=== PATIENT | female | born 1940 | race Caucasian/White ===

== ENCOUNTER 2016-08-20 06:20 | Inpatient (IN) | payer MEDICARE, OTHER ==
[2016-08-14 11:06] LABS: HEMATOCRIT 38.3 % (36.0-48.0)
[2016-08-14 11:20] LABS: A/G RATIO 1.4 (0.7-1.9); ALBUMIN 3.9 G/DL (3.5-5.0); ALKALINE PHOSPHATASE 86 U/L (45-117); BUN (BLOOD UREA NITROGEN) 14 MG/DL (6-23); CALCIUM, SERUM 9.2 MG/DL (8.5-10.4); CHLORIDE, SERUM 110 MMOL/L (96-112); CO2 (CARBON DIOXIDE) 27 MMOL/L (24-34); CREATININE 0.75 MG/DL (0.55-1.02); GFR AFRICAN AMERICAN 90 ML/MIN (>=60); GFR NON AFRICAN AMERICAN 77 ML/MIN (>=60); GLOBULIN 2.8 G/DL (2.5-4.1); GLUCOSE, SERUM 94 MG/DL (60-99); POTASSIUM, SERUM 4.4 MMOL/L (3.5-5.3); SGOT(AST) 19 U/L (5-40); SGPT(ALT) 21 U/L (5-65); SODIUM, SERUM 144 MMOL/L (135-148); TOTAL BILIRUBIN 0.5 MG/DL (0-1.2); TOTAL PROTEIN 6.7 G/DL (6.0-8.5)
--- NOTE | ~2016-08-20 | OP ---
Record Of Operation [facility] [address] [place]. [address] NAME: STEPHANI FORTE : 40 STATUS : ADM IN PAT#: [id number] AGE: 76 ADM/REG DATE : 08/20/16 MR#: [id number] REPORT SERV DATE: 08/20/16 DICTATED BY: TORSTEN DANIELS DATE: 08/20/16 REPORT STATUS : Draft TRANSCRIBED BY: MODL DATE: 08/20/16 DATE OF PROCEDURE: 08/20/2016 PREOPERATIVE DIAGNOSES: 1. Type 3 paraesophageal hiatal hernia. 2. Gastroesophageal reflux disease. POSTOPERATIVE DIAGNOSES: 1. Type 3 paraesophageal hiatal hernia. 2. Gastroesophageal reflux disease. PROCEDURES: 1. Laparoscopic reduction and mesh patch repair of type 3 diaphragmatic hiatal hernia. 2. Laparoscopic Gissel fundoplication. DESCRIPTION OF OPERATIVE PROCEDURE: The patient was brought to the operating suite, placed in the supine position, underwent satisfactory general endotracheal anesthesia without incident. The lower extremities were elevated in the padded Rodo stirrups and the skin of the abdomen was scrubbed, prepped, and draped in usual sterile fashion. Initially, a left subcostal incision was performed and a disposable Veress insufflation was inserted through the muscular aponeurotic fascia into the peritoneal cavity. The intraperitoneal tip location was ascertained using the saline hanging drop method following which CO2 was insufflated for pressures of 15 mmHg throughout the case. After adequate insufflation pressure achieved, the Veress needle was removed, and a Optiview 11 mm trocar was inserted through this subcostal site into the peritoneal cavity following which a rigid 30-degree angle viewing 10 mm laparoscope was utilized. Visualization of the intraabdominal parietes revealed no evidence of injury from initial insufflation or puncture. Four additional trocars were placed under direct visualization, all 5 mm in size except at the umbilicus where a 10-11 mm trocar was placed and a camera switched to this site for the remainder of the case. Through the right subcostal 5 mm incision, a Hayley- Flex liver retractor was passed, actuated, and used to elevate the left lobe of the liver and visualized the diaphragmatic hiatal hernia. The stomach was entirely intrathoracic/in the mediastinum. No other intraabdominal parietes were through the hiatus. Using the Harmonic Scalpel dissection supplemented with blunt dissection, the gastrohepatic ligament was divided and the hernia sac was dissected free from the mediastinum with blunt and Harmonic dissection. Retroesophageal dissection was performed starting at the right carrol and continued in the avascular plane behind the GE junction towards the left carrol. Gastric fundus was mobilized with the short gastric vessels again with the Harmonic Scalpel. The left carrol was retracted laterally and further dissection of the hernia sac was performed to reduce it from the mediastinum and then completion of the retroesophageal dissection was performed. Record Of Operation [place] [id number] [facility] [place]. [address] NAME: STEPHANI FORTE : 40 STATUS : ADM IN PAT#: [id number] AGE: 76 ADM/REG DATE : 08/20/16 MR#: [id number] REPORT SERV DATE: 08/20/16 DICTATED BY: TORSTEN DANIELS DATE: 08/20/16 REPORT STATUS : Draft TRANSCRIBED BY: HARRY DATE: 08/20/16 The hiatal hernia sac was dissected free from the GE junction and the anterior wall of the stomach and removed. Diaphragmatic hiatal hernia repair was performed with a combination of the intra and extracorporal suturing technique with 0 Ethibond both posterior and anterior to the GE junction. This repair was then reinforced with an absorbable [place] BIO-A patch, which was plicated to the crura and the diaphragm with a SorbaFix tacker. 360-degree Gissel fundoplication was performed in a "floppy" fashion over a distance of 2.5 to 3 cm with three separate placed sutures of 0 Ethibond and then further Fundopexy to the right carrol again with 0 Ethibond. The latex drain placed around the GE junction was removed, trocars removed, liver retractor was removed. No muscular bleeding was noted. CO2 was allowed to egress from peritoneal cavity. The two 10-11 mm puncture sites were closed at the fascial level with interrupted figure-of- eight suture of 0 Vicryl. Subcutaneous tissue closed at all sites with interrupted 4-0 Vicryl, running subcuticular stitch of 4-0 Vicryl for the skin. Dermabond skin adhesive placed. The patient tolerated the procedure well and returned to the PACU in stable condition. At the termination of the procedure, sponge, needle, lap, and instrument counts were correct x3. ESTIMATED BLOOD LOSS: Less than 15-20 mL. WR/MODL Torsten Daniels M.D. / [id number] CC: Torsten Daniels M.D.
[~2016-08-20 06:20] MED LIST: COZAAR100 MG PO; HEMOCYTET PO; IBU-200200 MG PO; LOOMIS ENZYMES; MAGNESIUM PO; PRO OMEGA PO; VITAMIN D31000 UNIT PO; VITAMINS/SUPPLEMENTS PO; VITC500 PO; ZINC PO; [UNRECOGNIZED DRUG - OTHER] TOP
[2016-08-21 06:41] LABS: BASOPHILS 0.1 %; BASOPHILS ABSOLUTE 0.01 10/3/uL (0.0-0.16); EOSINOPHILS 0.5 %; EOSINOPHILS ABSOLUTE 0.04 10/3/uL (0.0-0.53); HEMOGLOBIN 11.7 g/dL (12.0-16.0); IMMATURE GRANULOCYTES 0.1 %; IMMATURE GRANULOCYTES ABSOLUTE 0.01 10/3/uL (0.0-0.11); LYMPHOCYTES 18.5 %; LYMPHOCYTES ABSOLUTE 1.57 10/3/uL (0.67-4.30); MEAN CORPUS HGB CONC 34.4 g/dL (32.0-36.0); MEAN CORPUSCULAR HEMOGLOB 33.5 pg (26.0-34.0); MEAN PLATELET VOLUME 9.6 fL (9.2-13.0); MONOCYTES ABSOLUTE 0.85 10/3/uL (0.21-1.20); NEUTROPHILS 70.8 %; NEUTROPHILS ABSOLUTE 6.02 10/3/uL (2.02-8.40); RBC DISTRIBUTION WIDTH 12.4 % (12.0-16.0); RED CELL COUNT 3.49 10/6/uL (4.0-5.6); WHITE BLOOD CELLS 8.5 10/3/uL (4.5-10.5)
[2016-08-21 06:42] LABS: MANUAL DIFF NO %; MEAN CORPUSCULAR VOLUME 97.4 fL (80-100); PLATELET COUNT 217 10/3/uL (150-400)
[2016-08-21 06:58] LABS: A/G RATIO 1.2 (0.7-1.9); ALBUMIN 3.1 G/DL (3.5-5.0); ALKALINE PHOSPHATASE 65 U/L (45-117); BUN (BLOOD UREA NITROGEN) 8 MG/DL (6-23); CALCIUM, SERUM 8.4 MG/DL (8.5-10.4); CHLORIDE, SERUM 110 MMOL/L (96-112); CO2 (CARBON DIOXIDE) 25 MMOL/L (24-34); CREATININE 0.63 MG/DL (0.55-1.02); GFR AFRICAN AMERICAN 101 ML/MIN (>=60); GFR NON AFRICAN AMERICAN 87 ML/MIN (>=60); GLOBULIN 2.5 G/DL (2.5-4.1); GLUCOSE, SERUM 106 MG/DL (60-99); POTASSIUM, SERUM 3.6 MMOL/L (3.5-5.3); SGOT(AST) 29 U/L (5-40); SGPT(ALT) 29 U/L (5-65); SODIUM, SERUM 142 MMOL/L (135-148); TOTAL BILIRUBIN 0.5 MG/DL (0-1.2); TOTAL PROTEIN 5.6 G/DL (6.0-8.5)
[2016-08-21] MEDS ORDERED: HYCET 7.5 MG-3473 ML PO (10:04)
== END 2016-08-21 12:20 | disposition home or self-care (01) | DRG 328 ==
LOC: SDC/OF 06:20 → PACU 11:45 → 5SO 13:23
PROVIDERS: Specialist
PROC: 0BUR4JZ (ICD-10-PCS; 2016-08-20)
PROC: 0BUS4JZ (ICD-10-PCS; 2016-08-20)
PROC: 0DV44ZZ Restriction of Esophagogastric Junction, Percutaneous Endoscopic Approach (ICD-10-PCS; principal; 2016-08-20 07:45)
DX: K44.9 Diaphragmatic hernia without obstruction or gangrene (principal); I10 Essential (primary) hypertension; K21.9 Gastro-esophageal reflux disease without esophagitis; G47.33 Obstructive sleep apnea (adult) (pediatric); Z88.1 Allergy status to other antibiotic agents; Z90.710 Acquired absence of both cervix and uterus; Z98.890 Other specified postprocedural states
CPT/HCPCS: 80053; 85014; 85018; 85025; 88302; 93005; A9270-GY; J0690; J2270; J2370; J2405; J2710; J3010